=== PATIENT | female | born 1970 | race Two or more races ===

== ENCOUNTER → 2017-07-18 | Outpatient (CLI) | payer OTHER | END | disposition home or self-care (01) | LOC: US 13:08 | DX: N64.4 Mastodynia (principal) | CPT/HCPCS: 76641 ==

== ENCOUNTER → 2017-09-19 | Outpatient (CLI) | payer OTHER | END | disposition home or self-care (01) | LOC: US 14:31 | DX: R59.0 Localized enlarged lymph nodes (principal) | CPT/HCPCS: 76881 ==